=== PATIENT | female | born 1965 | race Caucasian/White ===

== ENCOUNTER 2016-11-24 19:14 | Inpatient (IN) | payer MEDICARE ==
[~2016-11-24] VITALS: Ht 167.6 cm; Wt 63.5 kg
[2016-11-24 19:00] VITALS: BP 141/80
--- NOTE | 2016-11-24 19:15 | NUR ---
PT ARRIVED TO UNIT VIA WC PROPELLED BY ADMISSION STAFF. ADMITTED TO ROOM 1117A TO DR ÁLVAREZ SERVICES. ORIENTED TO ROOM AND UNIT RULES WITH VERBAL UNDERSTANDING VOICED. 2 AQUA SEAL DRESSINGS NOTED TO LOWER BACK. PT IS ALERT AND ORIENTED X 4. 2 FAMILY MEMBERS ARE AT BEDSIDE. SR'S ARE UP X 2 IN BED. CALL LIGHT AND BEDSIDE TABLE ARE WITHIN EASY REACH.
[2016-11-24] MEDS ORDERED: LOTREL 10/20 CA1 CAP PO (19:26)
[2016-11-24] MEDS ORDERED: XANAX1 MG PO (19:26)
[2016-11-24] MEDS ORDERED: ADDERALL XR 3030 MG PO (19:27)
[2016-11-24] MEDS ORDERED: SYMBICORT 80-10.2 GM INH (19:28)
[2016-11-24] MEDS ORDERED: ESTRACE1 MG PO (19:29)
[2016-11-24] MEDS ORDERED: HYDROCODONE-APA1 TAB PO (19:31)
[2016-11-24] MEDS ORDERED: MOBIC7.5 MG PO (19:31)
[2016-11-24] MEDS ORDERED: PERCOCET 5-3251 TAB PO (19:32)
[2016-11-24] MEDS ORDERED: NEURONTIN600 MG PO (19:33)
[2016-11-24] MEDS ORDERED: SENNA LAXATIVE8.6 MG PO (19:33)
--- NOTE | 2016-11-24 23:10 | NUR ---
PT IS RESTING QUIETLY IN BED WITH EYES CLOSED. RESPS ARE EVEN AND UNLABORED. NO ACUTE DISTRESS NOTED.
[2016-11-25 00:27] VITALS: BMI 22.6
--- NOTE | 2016-11-25 00:45 | NUR ---
ADMISSION ASSESSMENT COMPLETE. DENIES CURRENT NEEDS.
--- NOTE | 2016-11-25 01:32 | NUR ---
RESTING IN BED WITH EYES CLOSED.
--- NOTE | 2016-11-25 05:56 | NUR ---
PT RESTING IN BED WITH EYES CLOSED. AWAITING OT EVAL THIS AM.
[2016-11-25 06:56] LABS: BASOPHILS 0.3 % (0.0-2.0); EOSINOPHILS 2.1 % (0-7); HEMATOCRIT 30.4 % (36.0-48.0); HEMOGLOBIN 10.1 g/dL (12-16); IMMATURE GRANULOCYTES 0.3 % (0-5); LYMPHOCYTES 22.4 % (15-50); MCHC 33.2 g/dL (31.0-37.0); MCV 93.3 fL (80.0-100.0); MEAN PLATELET VOLUME 8.6 fL (7.4-10.4); MONOCYTES 12.3 % (2-11); NEUTROPHILS 62.6 % (40-80); PLATELET COUNT 425 10x3/uL (130-400); RBC 3.26 10x6/uL (4.00-5.40); RDW 12.5 % (11.5-14.5)
[2016-11-25 07:14] LABS: ANION GAP 14.7 mmol/L (8-16); CALCIUM 8.9 mg/dL (8.5-10.1); CARBON DIOXIDE 28.6 mmol/L (21.0-32.0); CREATININE - SERUM 0.9 mg/dL (0.6-1.3); POTASSIUM - SERUM 4.3 mmol/L (3.5-5.1)
--- NOTE | 2016-11-25 07:30 | NUR ---
RESTING QUIETLY IN BED. CALL LIGHT IN REACH
[2016-11-25 08:18] VITALS: BP 121/91
--- NOTE | 2016-11-25 12:45 | NUR ---
EATING LUNCH IN ROOM CALL LIGHT IN REACH
[2016-11-25 14:18] VITALS: Ht 167.6 cm; Wt 63.5 kg
--- NOTE | 2016-11-25 18:13 | NUR ---
SITTING ON SIDE OF BED IN ROOM TALKING TO ROOM MATE. REFUSED ADDERALL EARLIER AND HAS SINCE ASKED FOR AND RECIEVED MUSCLE REALAXERS. INCISION DSG IS DRY AND CLEAN
[2016-11-25 19:35] VITALS: BP 113/54
--- NOTE | 2016-11-25 19:41 | NUR ---
PT RESTING ON RIGHT SIDE, EYES CLOSED, RESPIRATIONS REGULAR AND UNLABORED, NO S/S OF ACUTE DISTRESS.
--- NOTE | 2016-11-25 22:10 | NUR ---
PT. SITTING UP IN RECLINER WITH PILLOWS FOR SUPPORT AND CALL LIGHT WITHIN REACH, WATCHING TV AND SAYS THE PAIN MED HASN'T STARTED WORKING YET BUT SHE WILL LET ME KNOW IS HER PAIN LEVEL DOESN'T DECREASE.
--- NOTE | 2016-11-26 00:06 | NUR ---
PT. IN BED WITH HOB UP FOR COMFORT AND MULTIPLE PILLOWS TO RIGHT SIDE OF BODY. EYES CLOSED AND RESP. EVEN. CALL LIGHT WITHIN REACH.
--- NOTE | 2016-11-26 04:22 | NUR ---
ASSISTED PT. TO BR TO URINATE. PT. DENIES ANY PROBLEMS. WALKING BETTER WITH TOES GRIPPING THE FLOOR. ASSISTED PT. BACK TO BED, POSITIONED TO COMFORT AND CALL LIGHT WITHIN REACH.
[2016-11-26 07:09] LABS: BASOPHILS 0.5 % (0.0-2.0); EOSINOPHILS 2.5 % (0-7); HEMATOCRIT 28.8 % (36.0-48.0); HEMOGLOBIN 9.6 g/dL (12-16); IMMATURE GRANULOCYTES 0.2 % (0-5); LYMPHOCYTES 26.8 % (15-50); MCH 31.1 pg (26.0-34.0); MCHC 33.3 g/dL (31.0-37.0); MCV 93.2 fL (80.0-100.0); MEAN PLATELET VOLUME 8.7 fL (7.4-10.4); MONOCYTES 12.6 % (2-11); NEUTROPHILS 57.4 % (40-80); PLATELET COUNT 453 10x3/uL (130-400); RBC 3.09 10x6/uL (4.00-5.40); RDW 12.4 % (11.5-14.5); WBC 5.9 10x3/uL (4.8-10.8)
[2016-11-26 07:45] LABS: CALC OSMOLALITY 275 mosm/kg (275-300); CALCIUM 8.8 mg/dL (8.5-10.1); CARBON DIOXIDE 29.1 mmol/L (21.0-32.0); CHLORIDE - SERUM 102 mmol/L (98-107); CREATININE - SERUM 0.7 mg/dL (0.6-1.3); POTASSIUM - SERUM 4.5 mmol/L (3.5-5.1); SODIUM 140 mmol/L (136-145); UREA NITROGEN 11 mg/dL (7-18); eGFR NON AFRICAN AMERICAN > 90 mL/min (90-120)
[2016-11-26 07:49] LABS: GLUCOSE 69 mg/dL (74-106)
--- NOTE | 2016-11-26 08:00 | NUR ---
SHIFT ASSMT COMPLETED.CL IN REACH.
[2016-11-26 08:18] VITALS: BP 124/84
--- NOTE | 2016-11-26 12:00 | NUR ---
DENIES NEEDS.EATING LUNCH.
--- NOTE | 2016-11-26 15:44 | NUR ---
CARE TEAM MEETING: PATIENT TENATIVE DISCHARGE DATE IS 11/28/16. WILL CONTNIUE TO FOLLOW WITH PATIENT UNTIL DISCHARGED.
--- NOTE | 2016-11-26 16:00 | NUR ---
VISITING WITH FRIENDS.
[2016-11-26 19:00] VITALS: BP 108/77
--- NOTE | 2016-11-26 19:25 | NUR ---
PT IN BED VISITING WITH FAMILY. NO NEEDS MADE KNOWN AT THIS TIME
--- NOTE | 2016-11-27 03:58 | NUR ---
PT IN BED WITH EYES CLOSED AND CHEST RISING. NO SIGN/SYMPTOMS OF DISTRESS. COMPLAINED OF PAIN AT 0240 WITH PRN GIVEN PER NOV. NO OTHER NEEDS MADE KNOWN. CALL LIGHT IN REACH.
--- NOTE | 2016-11-27 06:27 | NUR ---
PT IN BED WITH EYES CLOSED EASILY AROUSED TO VERBAL STIMULI. COMPLAINS OF PAIN WITH PRN MEDS GIVEN PER NOV. NO OTHER NEEDS MADE KNOWN. ASSISTED TO BATHROOM OBSERVATION ONLY SLOW STEADY GAIT WITH WALKER NOTED. CALL LIGHT IN REACH.
[2016-11-27 10:19] VITALS: BP 101/68
--- NOTE | 2016-11-27 12:00 | NUR ---
DENIES NEEDS.CL IN REACH.
--- NOTE | 2016-11-27 20:19 | NUR ---
PT IN BED WATCHING TV. PAIN LEVEL AT 6/10 WITH PRN GIVEN. NO OTHER NEEDS MADE KNOWN AT THIS TIME. CALL LIGHT IN REACH.
[2016-11-27 22:22] VITALS: BP 125/79
--- NOTE | 2016-11-28 01:39 | NUR ---
PT IN BED WITH EYES CLOSED WITH CHEST RISING. UP TO BATHROOM ONCE SINCE LAST NOTE. NO OTHER NEEDS MADE KNOWN. CALL LIGHT IN REACH.
--- NOTE | 2016-11-28 05:10 | NUR ---
PT IN BED WITH EYES OPEN REQUEST PRN OXY FOR PAIN 6/10 TO LEGS WITH SHARP SHOOTING PAIN. NO OTHER NEEDS OR CONCERNS MADE KNOWN AT THIS TIME. CALL LIGHT IN REACH.
[2016-11-28 05:59] LABS: BASOPHILS 0.6 % (0.0-2.0); EOSINOPHILS 4.4 % (0-7); HEMATOCRIT 30.2 % (36.0-48.0); HEMOGLOBIN 9.8 g/dL (12-16); IMMATURE GRANULOCYTES 0.4 % (0-5); LYMPHOCYTES 28.5 % (15-50); MCH 30.6 pg (26.0-34.0); MCHC 32.5 g/dL (31.0-37.0); MCV 94.4 fL (80.0-100.0); MEAN PLATELET VOLUME 8.4 fL (7.4-10.4); MONOCYTES 12.1 % (2-11); RDW 12.6 % (11.5-14.5); WBC 5.4 10x3/uL (4.8-10.8)
[2016-11-28 06:03] LABS: PLATELET COUNT 567 10x3/uL (130-400)
[2016-11-28 06:21] LABS: CALC OSMOLALITY 281 mosm/kg (275-300); CALCIUM 9.4 mg/dL (8.5-10.1); CHLORIDE - SERUM 104 mmol/L (98-107); CREATININE - SERUM 0.8 mg/dL (0.6-1.3); GLUCOSE 82 mg/dL (74-106); SODIUM 142 mmol/L (136-145); UREA NITROGEN 12 mg/dL (7-18); eGFR NON AFRICAN AMERICAN 79 mL/min (90-120)
--- NOTE | 2016-11-28 07:26 | NUR ---
RESTING QUIETLY IN BED CALL LIGHT IN REACH
[2016-11-28 08:57] VITALS: BP 98/54
[2016-11-28] MEDS ORDERED: ZANAFLEX4 MG PO (09:00)
[2016-11-28] MEDS ORDERED: BENAZEPRIL HCL10 MG PO (09:01)
--- NOTE | 2016-11-28 09:41 | NUR ---
PATIENT DISCHARGING HOME WITH FAMILY. [facility] WILL FOLLOW WITH PATIENT AT HOME. NO DME NEEDED AT THIS TIME. APPOINTMENT: DR. GAMEZ 12/04/16 @ 2:30. HAS A PENDING APPOINTMENT WITH SURGEON. ORDERS HAVE BEEN FAXED WITH [employer] RECIEVED. PATIENT EDUCATE ON SIGNS AND SYMPTOMS OF INFECTION TO SURGICAL SITE.
--- NOTE | 2016-11-28 09:49 | RHP ---
PATIENT: CRYSTAL LANG MEDICAL RECORD: [id number] ACCOUNT: [id number] LOCATION:[id number] : 61 ADMISSION DATE: 11/24/16 REHABILITATION HISTORY AND PHYSICAL EXAMINATION POST ADMISSION PHYSICIAN EXAMINATION Post-Admission Physical Examination and History and Physical DATE OF ADMISSION TO THE REHAB: 11/24/2016 ADMITTING DIAGNOSES: Lumbar spinal stenosis, pseudoarthrosis of lumbar spine and secondary scoliosis of lumbar region. HISTORY OF PRESENT ILLNESS: The patient is a 51-year-old female patient with a past medical history scoliosis osteomyelitis of the cervical region, hypertension, COPD and degenerative disc disease. She has a history of a posterior spinal fusion at T6-L5. She now has loose implants in the lower lumbar spine status post fall as well as canal stenosis at L3-L4. She presented to [facility] on November 19 for revision posterior spinal fusion. The patient underwent a posterior spinal fusion L1 to pelvis and also a TLIF of L5-S1 and instrumentation to S2 screw on November [address] Fred Duran. She received 1 unit of packed red blood cells in the OR. She is doing well postop; however, requires assistance with ambulation, transfers and ADLs. She ambulated 8 feet with moderate assist. She is tolerating regular diet and has had a bowel movement. [place] catheter was removed the day after surgery and she had been urinating without difficulty. She continues to have pain, but states it is much better. She is highly motivated to return back to her prior level of functioning. Acute rehab was ordered by the neurosurgeon. Hopefully get her back up and going again. COMORBIDITIES: In this patient include essential hypertension, COPD, osteomyelitis, radiculopathy of the surgical region, risk for falls, postop infection, electrolyte abnormalities. PAST MEDICAL HISTORY: Significant for hypertension, COPD, radiculopathy of the cervical region, osteomyelitis of the lumbar region, scoliosis, low back pain with radiculopathy and neuropathic pain. PAST SURGICAL HISTORY: Includes posterior spinal fusion and decompression. ALLERGIES: PENICILLIN, SULFA AND DEMEROL. CURRENT MEDICATIONS: She is on Adderall 30 mg b.i.d., meloxicam 15 mg daily, Estrace 1 mg daily, benazepril 20 mg daily, amlodipine 10 mg daily, tizanidine 4 mg t.i.d. p.r.n. spasms, Neurontin 600 mg q.i.d., Senokot 1 tab b.i.d., Percocet 2 tabs q.4 hours p.r.n. pain. She is on [place] as needed for breakthrough pain. She is on Advair 45/21 inhalation 2 puffs b.i.d. and Xanax 1 mg t.i.d. p.r.n. anxiety. HABITS: No alcohol or tobacco use. FAMILY HISTORY: Noncontributory. SOCIAL HISTORY: The patient hopes to return back home. She lives in [facility]. HISTORY AND PHYSICAL [id number] CRYSTAL LANG REVIEW OF SYSTEMS: GENERAL: Does complain of weakness. HEENT: She denies cold, cough, or congestion. CARDIOVASCULAR: Denies chest pain. PHYSICAL EXAMINATION: VITAL SIGNS: Stable, afebrile. GENERAL: Well-developed female in no acute distress, alert upon exam. HEENT: Normocephalic, atraumatic. Mucosa moist. NECK: Supple. No lymphadenopathy. LUNGS: Clear at this time. HEART: rate and rhythm. ABDOMEN: Benign. EXTREMITIES: No clubbing, cyanosis or edema. NEUROLOGIC: Does have weakness in both lower extremities. LABORATORY DATA: White count 7000, H&H of 10 and 30.4 and platelet count is 425. Her sodium is 141, potassium 4.3, BUN and creatinine of 11 and 0.9 and blood sugar is noted to be 82. ASSESSMENT: This 51-year-old female patient admitted to rehab with a working diagnosis of lumbar spinal stenosis status post procedure to alleviate pain and loose hardware. The patient has potential to make improvement. We instituted the following multidisciplinary therapies including to, but not limited to physical, occupational, respiratory, speech, nutritional services, prosthetics and orthotics. Given her complex condition and risk for more complications, rehabilitation services cannot be provided at a lower level of care such as a nursing home facility. PLAN: 1. Admit to [facility] rehab for intensive inpatient therapy to include the following disciplines: A. Physical therapy to improve gait, all transfer skills and bed mobility to a modified independent level. B. Occupational therapy to improve activities of daily living a modified independent level. C. Case management to assist with discharge planning and placement options. D. Nutrition to assist with nutritional needs. E. Rehabilitation nursing to assist in monitoring the patient's underlying medical conditions and to assist with any type of bowel or bladder management. 2. The patient's current medication and medical care will be continued. 3. The patient will be placed on standard fall precautions. 4. We will go ahead and try to advance her in a symptomatic systematic way to get her strength back and get her back home. She does live alone and hopefully get her back to her prior level of functioning. 5. We will discuss her during care team staff meeting this week. TRANSINT:[id number] Voice Confirmation ID: [id number] DOCUMENT ID: [id number] HISTORY AND PHYSICAL [id number] CRYSTAL LANG SCOTT MD at 0949 CC: [id number] DICTATION DATE: 11/25/16830 STEAM HAND: 11/25/16 1327 ADM IN [place] [id number] [place] [id number]
--- NOTE | 2016-11-28 10:09 | NUR ---
went over dc instructions with pt. she declined needing any meds called in. dr llamas wrote two hard scripts for pain meds and adderall. she stated understanding of d/c instructions and denies questions.
--- NOTE | 2016-11-28 12:30 | NUR ---
D/C HOME WITH ALL PERSONAL BELONGINGS. PT HAS PERSONAL MEDICATIONS IN HER POSESSION AND AGREES WITH THE MED COUNT. SHE USES WALKER AND W/C FOR MOTION ASST. DSG INTACT TO BACK. DENIES NUMBNESS AND TINGLING TO BLE.
== END 2016-11-28 12:30 | disposition home health service (06) | DRG 552 ==
LOC: D.REHAB 19:14
PROVIDERS: ADMIT Emergency Medicine
DX: M48.06 Spinal stenosis, lumbar region (principal); M46.22 Osteomyelitis of vertebra, cervical region; T81.4XXA Infection following a procedure, initial encounter; M96.0 Pseudarthrosis after fusion or arthrodesis; M41.9 Scoliosis, unspecified; I10 Essential (primary) hypertension; J44.9 Chronic obstructive pulmonary disease, unspecified; M54.12 Radiculopathy, cervical region; E87.8 Other disorders of electrolyte and fluid balance, not elsewhere classified; Z91.81 History of falling; Y83.9 Surgical procedure, unspecified as the cause of abnormal reaction of the patient, or of later complication, without mention of misadventure at the time of the procedure